=== PATIENT | male | born 1975 | race African-American/Black ===

== ENCOUNTER 2020-07-22 16:12 | Inpatient (IN) | payer OTHER ==
[2020-07-22] MEDS ORDERED: KETOROLAC TROMETHAMINE INJ 30 MG/ML VIAL IV ONE (17:00)
[2020-07-22] MEDS ORDERED: MORPHINE SULFATE INJ 2 MG/ML DISP.SYRIN IV ONE ×2 (17:00→19:00)
[2020-07-22] MEDS ORDERED: ONDANSETRON HCL/PF 4 MG/2 ML VIAL IVP ONE (17:00)
[2020-07-22] MEDS ORDERED: IV NS 0.9% 1,000 ML BAG IV ONE (17:00)
[2020-07-22] MEDS ORDERED: ONDANSETRON HCL/PF 4 MG/2 ML VIAL ONE ×2 (17:02→18:37)
[2020-07-22] MEDS ORDERED: MORPHINE SULFATE INJ 4 MG/ML DISP.SYRIN ONE (17:02)
[2020-07-22] MEDS ORDERED: KETOROLAC TROMETHAMINE 15 MG/ML VIAL ONE (17:02)
[2020-07-22] MEDS ORDERED: CT SWABBABLE VALVE TRANS SET 1 EA INFUS.SET MC ONE (17:35)
[2020-07-22] MEDS ORDERED: IOHEXOL-300 100 ML VIAL IV ONE (17:35)
[2020-07-22] MEDS ORDERED: IV NS 0.9% 250 ML IV ONE (17:36)
[2020-07-22] MEDS ORDERED: MORPHINE SULFATE INJ 2 MG/ML DISP.SYRIN ONE (18:37)
[2020-07-22] MEDS ORDERED: ONDANSETRON HCL/PF - ER 4 MG/2 ML VIAL IV ONE (19:00)
[2020-07-22] MEDS ORDERED: ACETAMINOPHEN 325 MG TABLET PO PRN (21:30)
[2020-07-22] MEDS ORDERED: MAGNESIUM HYDROXIDE 30 ML UDC PO PRN (21:30)
[2020-07-22] MEDS ORDERED: MAG HYDROX/AL HYDROX/SIMETH 30 ML UDC PO PRN (21:30)
[2020-07-22] MEDS ORDERED: ZOLPIDEM TARTRATE 5 MG TABLET PO PRN (21:30)
[2020-07-22] MEDS ORDERED: Z GUARD REMEDY 2 OZ OINT TP PRN (21:30)
[2020-07-22] MEDS: HYDROMORPHONE INJ 2 MG/ML DISP.SYRIN IV PRN (22:41)
[2020-07-22] MEDS ORDERED: CEFTRIAXONE 1 G VIAL ONE (23:08)
[2020-07-22] MEDS: IV NS 0.9% 1,000 ML IV PRN (23:19)
[2020-07-22] MEDS: CEFTRIAXONE 1 G in IV D5W 50 ML IV SCH (23:20)
[2020-07-23] MEDS: HYDROCODONE/APAP 5/325MG TABLET PO PRN ×4 (01:59→20:31)
[2020-07-23] MEDS: HYDROMORPHONE INJ 2 MG/ML DISP.SYRIN IV PRN ×4 (04:37→23:03)
[2020-07-23] MEDS ORDERED: GABAPENTIN (09:08)
[2020-07-23] MEDS: CEFTRIAXONE 1 G in IV D5W 50 ML IV SCH (23:03)
[2020-07-23] MEDS: IV NS 0.9% 1,000 ML IV PRN (23:04)
[2020-07-24] MEDS: HYDROMORPHONE INJ 2 MG/ML DISP.SYRIN IV PRN ×3 (06:13→21:00)
[2020-07-24] MEDS: ONDANSETRON HCL/PF 4 MG/2 ML VIAL IVP PRN ×2 (15:18→21:06)
[2020-07-24] MEDS: IV NS 0.9% 1,000 ML IV PRN (16:40)
[2020-07-24] MEDS: CEFTRIAXONE 1 G in IV D5W 50 ML IV SCH (23:04)
[2020-07-25] MEDS: IV NS 0.9% 1,000 ML IV PRN (06:11)
[2020-07-25] MEDS: HYDROMORPHONE INJ 2 MG/ML DISP.SYRIN IV PRN (06:19)
[2020-07-25] MEDS ORDERED: IV NS 0.9% 1,000 ML IV SCH (08:00)
[2020-07-25] MEDS ORDERED: LEVO500T90 PO (09:45)
[2020-07-25] MEDS: HYDROCODONE/APAP 5/325MG TABLET PO PRN ×3 (10:56→15:00)
[2020-07-25] MEDS: ONDANSETRON HCL/PF 4 MG/2 ML VIAL IVP PRN (11:03)
[2020-07-25] MEDS ORDERED: HYDR-4384 PO (18:21)
== END 2020-07-25 15:00 | disposition home or self-care (01) | DRG 466 ==
DX: T83.092A Other mechanical complication of nephrostomy catheter, initial encounter (principal); Y73.2 Prosthetic and other implants, materials and accessory gastroenterology and urology devices associated with adverse incidents; Y92.9 Unspecified place or not applicable; K59.00 Constipation, unspecified; N17.9 Acute kidney failure, unspecified; N39.0 Urinary tract infection, site not specified; E43 Unspecified severe protein-calorie malnutrition; W34.00XS Accidental discharge from unspecified firearms or gun, sequela; N13.30 Unspecified hydronephrosis; B96.89 Other specified bacterial agents as the cause of diseases classified elsewhere; R16.0 Hepatomegaly, not elsewhere classified